=== PATIENT | female | born 1995 | race Caucasian/White ===

== ENCOUNTER 2017-04-13 13:26 | Emergency (ER) | payer BC, OTHER ==
--- NOTE | 2017-04-13 13:44 | EDM.PDOC ---
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 Review of systems: As per history of present illness and below otherwise all systems reviewed and negative. Past medical history: As per history of present illness and as reviewed below otherwise noncontributory. Surgical history: As per history of present illness and as reviewed below otherwise noncontributory. Social history: No reported history of drug or alcohol abuse. Family history: As per history of present illness and as reviewed below otherwise noncontributory. Physical exam: HEENT: Atraumatic, normocephalic, pupils reactive, negative for conjunctival pallor or scleral icterus, mucous membranes moist, throat clear, neck supple, nontender, trachea midline. Lungs: Clear to auscultation, breath sounds equal bilaterally, chest nontender. Heart: S1S2, regular, negative for clicks, rubs, or JVD. Abdomen: Soft, nondistended, nontender. Negative for masses or hepatosplenomegaly. Negative for costovertebral tenderness. Pelvis: Stable nontender. Genitourinary: Deferred. Rectal: Deferred. Extremities: Atraumatic, negative for cords or calf pain. Neurovascular unremarkable. Neuro: Awake, alert, oriented. Cranial nerves II through XII unremarkable. Cerebellum unremarkable. Motor and sensory unremarkable throughout. Exam nonfocal. Diagnostics: CBC quantitative beta ABO Rh pelvic ultrasound Therapeutics: None Impression: 1 threatened miscarriage Definitive disposition and diagnosis as appropriate pending reevaluation and review of above. - Related Data Allergies Allergy/AdvReac Type Severity Reaction Status Date / Time vancomycin Allergy Rash Verified 02/25/15 21:59 Home Meds: Home Meds Pnv No.122/Iron/Folic Acid [ Multi Tablet] 1 each PO DAILY 02/24/15 [ History] Clindamycin HCl 150 mg PO DAILY 02/25/15 [History] Social & Family History - Tobacco Use Smoking Status *Q: Current Every Day Smoker Years of Tobacco use: 3 Packs/Tins Daily: 0.2 Used Tobacco, but Quit: No Second Hand Smoke Exposure: Yes - Recreational Drug Use Recreational Drug Use: No ED ROS GENERAL - Review of Systems Review Of Systems: ROS reveals no pertinent complaints other than HPI. ED EXAM, GENERAL - Physical Exam Exam: See Below (See dictation) Course - Vital Signs Text/Narrative:: Lengthy discussion with patient and significant other regarding differential diagnosis including early threatened ectopic patient understands she is scheduled to be seen by her SENIOR SPEECH PATHOLOGIST on she is without pain in the ER and will be discharged per request for follow-up with repeat quantitative beta in 48 hours she understands the diagnosis remains unclear at this point in she was instructed on vaginal rest and be discharged with diagnosis of first trimester with bleeding probable threatened Last Recorded V/S: Last Vital Signs Temp 36.6 C 04/13/17 13:41 Pulse 105 H 04/13/17 13:41 Resp 16 04/13/17 13:41 BP 124/81 04/13/17 13:41 Pulse Ox 100 04/13/17 13:41 - Orders/Labs/Meds Labs: Laboratory Tests 04/13/17 04/13/17 04/13/17 Range/Units 13:50 13:50 13:50 WBC 7.03 (4.0-11.0) K/uL RBC 4.57 (4.30-5.90) M/uL Hgb 14.6 (12.0-16.0) g/dL Hct 41.9 (36.0-46.0) % MCV 91.7 (80.0-98.0) fL MCH 31.9 (27.0-32.0) pg MCHC 34.8 (31.0-37.0) g/dL RDW Std Deviation 40.7 (28.0-62.0) fl RDW Coeff of Kasie 12 (11.0-15.0) % Plt Count 323 (150-400) K/uL MPV 10.30 (7.40-12.00) fL Neut % (Auto) 50.8 (48.0-80.0) % Lymph % (Auto) 39.3 (16.0-40.0) % Hettinger % (Auto) 8.5 (0.0-15.0) % Eos % (Auto) 1.1 (0.0-7.0) % Baso % (Auto) 0.3 (0.0-1.5) % Neut # (Auto) 3.6 (1.4-5.7) K/uL Lymph # (Auto) 2.8 H (0.6-2.4) K/uL Hettinger # (Auto) 0.6 (0.0-0.8) K/uL Eos # (Auto) 0.1 (0.0-0.7) K/uL Baso # (Auto) 0.0 (0.0-0.1) K/uL Nucleated RBC % 0.0 /100WBC Nucleated RBCs # 0 K/uL HCG, Quant 77.4 mIU/mL Blood Type O POSITIVE Departure - Departure Time of Disposition: 16:19 Disposition: Home, Self-Care 01 Condition: Good Clinical Impression: Threatened - Discharge Information Referrals: PCP,None [Primary Care Provider] - Forms: ED Department Discharge Additional Instructions: The following information is given to patients seen in the emergency department who are being discharged to home. This information is to outline your options for follow-up care. We provide all patients seen in our emergency department with a follow-up referral. The need for follow-up, as well as the timing and circumstances, are variable depending upon the specifics of your emergency department visit. If you don't have a primary care physician on staff, we will provide you with a referral. We always advise you to contact your personal physician following an emergency department visit to inform them of the circumstance of the visit and for follow-up with them and/or the need for any referrals to a consulting specialist. The emergency department will also refer you to a specialist when appropriate. This referral assures that you have the opportunity for followup care with a specialist. All of these measure are taken in an effort to provide you with optimal care, which includes your followup. Under all circumstances we always encourage you to contact your private physician who remains a resource for coordinating your care. When calling for followup care, please make the office aware that this follow-up is from your recent emergency room visit. If for any reason you are refused follow-up, please contact the [facility] emergency department at and asked to speak to the emergency department charge nurse. She is scheduled appointment with EARLY CHILDHOOD EDUCATION COORDINATOR on quantitative beta 48 hours as discussed return as needed as discussed vaginal rest as discussed
[2017-04-13 13:50] VITALS: BP 124/81
--- NOTE | 2017-04-13 15:15 | US ---
EXAMINATION: Transvaginal pelvic ultrasound HISTORY: Bleeding COMPARISON: 02/25/2015 TECHNIQUE: Grayscale, color Doppler, spectral Doppler images obtained transvaginally. FINDINGS: The uterus is normal in size, contour, and echogenicity. There is no focal uterine mass. En dometrial stripe thickness measures 6 mm. No gestational sac identified. The ovaries are normal in size and contour without a focal mass. Normal color Doppler flow bilaterall y. Multiple small follicles noted. No adnexal mass or significant free pelvic fluid. IMPRESSION: 1. Unremarkable transvaginal pelvic ultrasound.
== END 2017-04-13 16:36 | disposition home or self-care (01) ==
LOC: MW.ED 13:26
DX: O20.0 Threatened abortion (principal); Z88.1 Allergy status to other antibiotic agents; Z79.899 Other long term (current) drug therapy
CPT/HCPCS: 36415; 76801; 76801-26; 84702; 85025; 86900; 86901; 99284; 99284-25